=== PATIENT | male | born 1945 | race Caucasian/White ===

== ENCOUNTER 2021-01-16 17:57 | Inpatient (IN) | payer BC ==
--- NOTE | 2021-01-16 18:01 | ERPHSYRPT ---
- History of Present Illness Time Seen by Provider: 01/16/21 18:01 Source: patient Exam Limitations: no limitations Physician History: This is a 75-year-old patient of Dr. Howe who was sent over from urgent care because he was experiencing some shortness of breath and took a pulse oximeter at home and it was 86 to 88%. He also notes that his heart rate was rapid. He did not recall what it was. An EKG was performed in urgent care which showed that he was in atrial fibrillation. Patient is on 3 different medications to lower his blood pressure. Recently, he was restarted on clonidine that he was off of for approximately 2 weeks. This was at the most recent addition to his drug regimen. He also has a history of gastroesophageal reflux disease. Patient denies chest pain. Patient denies abdominal pain. He does not have a history of atrial fibrillation and is not on any anticoagulation therapy. Timing/Duration: today Severity: moderate Associated Symptoms: shortness of breath, No chest pain Allergies/Adverse Reactions: No Known Drug Allergies Allergy (Verified 01/16/21 18:17) Home Medications: Amlodipine Besylate 10 mg [Norvasc 10 MG] 10 mg PO DAILY 08/09/15 [History] Phenylephrine HCl [Nasal Jellico] 30 ml NS DAILY PRN PRN 08/09/15 [History] Ramipril [Altace] 10 mg PO DAILY 08/09/15 [History] Omeprazole 20 mg PO DAILY 01/16/21 [History] Simvastatin 20Mg [Zocor 20Mg] 20 mg PO DAILY 01/16/21 [History] Timolol Maleate 0.5% Eye [Timoptic 0.5% 5 ml Ophthalmic] 5 ml OP BID 01/16/21 [History] cloNIDine HCL [Clonidine HCl] 0.2 mg PO DAILY 01/16/21 [History] Travel Risk - International Travel Have you traveled outside of the country in past 3 weeks: No - Coronavirus Screening Are you exhibiting any of the following symptoms?: No Close contact with a COVID-19 positive Pt in past 14-21 Days: No - Review of Systems Constitutional: No Symptoms Eyes: No Symptoms Ears, Nose, & Throat: No Symptoms Respiratory: Dyspnea Cardiac: Palpitations, No Chest Pain Abdominal/Gastrointestinal: No Symptoms Genitourinary Symptoms: No Symptoms Musculoskeletal: No Symptoms Skin: No Symptoms Neurological: No Symptoms Psychological: No Symptoms Endocrine: No Symptoms Hematologic/Lymphatic: No Symptoms Immunological/Allergic: No Symptoms All Other Systems: Reviewed and Negative - Past Medical History Pertinent Past Medical History: Yes Neurological History: No Pertinent History ENT History: No Pertinent History Cardiac History: High Cholesterol, Hypertension Respiratory History: No Pertinent History Endocrine Medical History: No Pertinent History Musculoskeletal History: No Pertinent History GI Medical History: GERD History: No Pertinent History Psycho-Social History: No Pertinent History Male Reproductive Disorders: No Pertinent History Other Medical History: 20-30 years ago he was wrestling with his son, he noted pain in the R shoulder and pain in the area where he hurts now. - Past Surgical History Past Surgical History: Yes Neuro Surgical History: No Pertinent History Cardiac: No Pertinent History Respiratory: No Pertinent History Gastrointestinal: No Pertinent History Genitourinary: No Pertinent History Musculoskeletal: No Pertinent History Male Surgical History: No Pertinent History Other Surgical History: EGD. Colonoscopy - Social History Smoking Status: Never smoker Exposure to second hand smoke: No Drug Use: none - Nursing Vital Signs Nursing Vital Signs: Initial Vital Signs Temperature 97.9 F 01/16/21 18:10 Pulse Rate 121 H 01/16/21 18:10 Respiratory Rate 24 01/16/21 18:10 Blood Pressure 170/118 01/16/21 18:10 O2 Sat by Pulse Oximetry 92 L 01/16/21 18:10 Pain Scale Pain Intensity 0 - Physical Exam General Appearance: no apparent distress, alert, anxiety Eye Exam: PERRL/EOMI, eyes nml inspection Ears, Nose, Throat Exam: normal ENT inspection, moist mucous membranes Neck Exam: normal inspection, non-tender, supple, full range of motion Respiratory Exam: normal breath sounds, lungs clear, No chest tenderness, No respiratory distress Cardiovascular Exam: irregular Gastrointestinal/Abdomen Exam: soft, normal bowel sounds, No tenderness Rectal Exam: not done Back Exam: normal inspection, normal range of motion, No CVA tenderness, No vertebral tenderness Extremity Exam: normal inspection, normal range of motion, pelvis stable Neurologic Exam: alert, oriented x 3, cooperative, telephone engineer II-XII nml as tested, normal mood/affect, nml cerebellar function, nml station & gait, sensation nml Skin Exam: normal color, warm, dry Lymphatic Exam: No adenopathy SpO2 Interpretation: normal O2 Delivery: Room Air - Course Nursing assessment & vital signs reviewed: Yes EKG Interpreted by Me: RATE (135), A-fib, NORMAL AXIS, NORMAL INTERVALS, NORMAL QRS, NORMAL ST-T, Non-specific ST Changes, Other (No comparison EKG. No acute ischemic changes on today's EKG) Ordered Tests: Active Orders 24 hr Category Date Time Status Dehydrogenation Converter Operator STAT Care 01/16/21 18:31 Active EKG-ER Only STAT Care 01/16/21 18:30 Active IV Insertion STAT Care 01/16/21 18:30 Active Pulse Oximetry (ED) STAT Care 01/16/21 18:30 Active CHEST 1 VIEW (PORTABLE) Stat Exams 01/16/21 18:31 Taken CHEST WITH CONTRAST [CT] Stat Exams 01/16/21 20:46 Taken CBC W DIFF Stat Lab 01/16/21 18:42 Completed CMP Stat Lab 01/16/21 18:42 Completed D-DIMER QUANTITATIVE Stat Lab 01/16/21 18:42 Completed MAGNESIUM Stat Lab 01/16/21 18:42 Completed NT PRO BNP Stat Lab 01/16/21 18:42 Completed PROTIME WITH INR Stat Lab 01/16/21 18:42 Completed TROPONIN Q3H Lab 01/16/21 18:42 Completed TROPONIN Q3H Lab 01/16/21 21:45 Ordered TROPONIN Q3H Lab 01/17/21 00:45 Ordered TROPONIN Q3H Lab 01/17/21 03:45 Ordered TROPONIN Q3H Lab 01/17/21 06:45 Ordered Transfer Order Routine Transfer 01/16/21 Ordered Medication Summary Generic Name Dose Route Start Last Admin Trade Name Freq PRN Reason Stop Dose Admin Diltiazem HCl 100 mls @ 5 mls/hr 01/16/21 21:10 Cardizem Drip 100 Mg/100 Ml D5w IV 02/15/21 21:09 .Q20H PRN HEART RATE/ A-FIB Protocol 5 MG/HR Discontinued Medications Generic Name Dose Route Start Last Admin Trade Name Freq PRN Reason Stop Dose Admin Diltiazem HCl 20 mg 01/16/21 18:32 01/16/21 18:42 Diltiazem Hcl Iv 5 Mg/Ml Vial IV 01/16/21 18:33 20 mg STAT ONE Administration Diltiazem HCl Confirm 01/16/21 18:33 Diltiazem Hcl Iv 5 Mg/Ml Vial Administered 01/16/21 18:34 Dose 50 mg IV .STK-MED ONE Enoxaparin Sodium 80 mg 01/16/21 21:09 01/16/21 21:21 Enoxaparin Sodium 80 Mg/0.8 Ml Syringe SQ 01/16/21 21:10 80 mg STAT ONE Administration Enoxaparin Sodium Confirm 01/16/21 21:19 Enoxaparin Sodium 80 Mg/0.8 Ml Syringe Administered 01/16/21 21:20 Dose 80 mg SQ .STK-MED ONE Sodium Chloride 500 mls @ 500 mls/hr 01/16/21 19:52 01/16/21 21:21 Sodium Chloride 0.9% 500 Ml IV 01/16/21 20:51 500 mls/hr .Q1H ONE Administration Sodium Chloride Confirm 01/16/21 21:19 Sodium Chloride 0.9% 500 Ml Administered 01/16/21 21:20 Dose 500 mls @ ud IV .STK-MED ONE Lorazepam 1 mg 01/16/21 20:19 Lorazepam 2 Mg/1 Ml 2 Mg Vial IV 01/16/21 20:20 STAT ONE Lab/Rad Data: Laboratory Result Diagrams 01/16/21 18:42 01/16/21 18:42 Laboratory Results 01/16/21 01/16/21 01/16/21 Range/Units 18:42 18:42 18:42 WBC (4.0-10.5) K/mm3 RBC (4.1-5.6) M/mm3 Hgb (12.5-18.0) gm/dl Hct (42-50) % MCV (78-100) fl MCH (26-32) pg MCHC (32-36) g/dl RDW (11.5-14.0) % Plt Count (150-450) K/mm3 MPV (7.5-11.0) fl Gran % (36.0-66.0) % Eos # (Auto) (0-0.5) Absolute Lymphs (auto) (1.0-4.6) Absolute Monos (auto) (0.0-1.3) Lymphocytes % (24.0-44.0) % Monocytes % (0.0-12.0) % Eosinophils % (0.00-5.0) % Basophils % (0.0-0.4) % Absolute Granulocytes (1.4-6.9) Basophils # (0-0.4) PT 11.7 (9.4-12.5) SECONDS INR 0.99 (0.8-3.0) D-Dimer 6057 H* (215-500) ng/mL Sodium 138 (137-145) mmol/L Potassium 3.9 (3.5-5.1) mmol/L Chloride 101 (98-107) mmol/L Carbon Dioxide 28 (22-30) mmol/L Anion Gap 13.3 (5-15) MEQ/L BUN 22 H (9-20) mg/dL Creatinine 0.94 (0.66-1.25) mg/dL Estimated GFR > 60.0 ML/MIN Glucose 125 H (74-106) mg/dL Calcium 8.8 (8.4-10.2) mg/dL Magnesium 1.8 (1.6-2.3) mg/dL Total Bilirubin 0.80 (0.2-1.3) mg/dL AST 35 (17-59) U/L ALT 18 (0-50) U/L Alkaline Phosphatase 98 (38-126) U/L Troponin I 0.016 (0.000-0.034) ng/mL NT-Pro-B Natriuret Pep 742 (0-900) pg/mL Serum Total Protein 7.3 (6.3-8.2) g/dL Albumin 4.1 (3.5-5.0) g/dL 01/16/21 Range/Units 18:42 WBC 8.8 (4.0-10.5) K/mm3 RBC 5.19 (4.1-5.6) M/mm3 Hgb 15.0 (12.5-18.0) gm/dl Hct 46.3 (42-50) % MCV 89.2 (78-100) fl MCH 28.9 (26-32) pg MCHC 32.4 (32-36) g/dl RDW 13.8 (11.5-14.0) % Plt Count 207 (150-450) K/mm3 MPV 9.4 (7.5-11.0) fl Gran % 73.1 H (36.0-66.0) % Eos # (Auto) 0.13 (0-0.5) Absolute Lymphs (auto) 1.43 (1.0-4.6) Absolute Monos (auto) 0.79 (0.0-1.3) Lymphocytes % 16.3 L (24.0-44.0) % Monocytes % 9.0 (0.0-12.0) % Eosinophils % 1.5 (0.00-5.0) % Basophils % 0.1 (0.0-0.4) % Absolute Granulocytes 6.39 (1.4-6.9) Basophils # 0.01 (0-0.4) PT (9.4-12.5) SECONDS INR (0.8-3.0) D-Dimer (215-500) ng/mL Sodium (137-145) mmol/L Potassium (3.5-5.1) mmol/L Chloride (98-107) mmol/L Carbon Dioxide (22-30) mmol/L Anion Gap (5-15) MEQ/L BUN (9-20) mg/dL Creatinine (0.66-1.25) mg/dL Estimated GFR ML/MIN Glucose (74-106) mg/dL Calcium (8.4-10.2) mg/dL Magnesium (1.6-2.3) mg/dL Total Bilirubin (0.2-1.3) mg/dL AST (17-59) U/L ALT (0-50) U/L Alkaline Phosphatase (38-126) U/L Troponin I (0.000-0.034) ng/mL NT-Pro-B Natriuret Pep (0-900) pg/mL Serum Total Protein (6.3-8.2) g/dL Albumin (3.5-5.0) g/dL - Progress Progress: improved, re-examined Progress Note: 01/16/21 21:23 The CTA of the chest shows significant pulmonary emboli in both main pulmonary arteries extending into all lobar branches. There are 2 left upper lobe indeterminate noncalcified nodules. There is cardiomegaly without effusions. Chest x-ray reveals no acute cardiopulmonary process. 01/16/21 21:24 Medical decision making: This patient has bilateral pulmonary emboli. In addition, there is new onset atrial fibrillation with RVR. The patient's heart rate improved significantly following Cardizem intravenous bolus. I gave the patient Lovenox 80 mg subcutaneously. I spoke with the patient's primary care doctor, Dr. Howe reviewed all the patient's lab work and results of the CAT scan of the chest. I also reviewed the patient's history and reviewed the patient's physical findings with him. He agrees that the patient needs to be in the hospital in the intensive care unit. We will place the patient in the intensive care unit with every 12 hours Lovenox, Cardizem drip, oxygen supplementation. We will repeat labs in the morning. Patient is agreeable to this plan. Discussed with .: Bella Counseled pt/family regarding: lab results, diagnosis, rad results - Departure Departure Disposition: In-patient Admission Clinical Impression: Pulmonary emboli, Atrial fibrillation with RVR Condition: Fair Critical Care Time: Yes Critical Care Time(excluding separately billable procedures): Critical 30-74 mins (50 minutes) Referrals: RACHLE HOWE [Primary Care Provider] - Follow up/PCP as directed
[2021-01-16] MEDS ORDERED: Cardizem IV 50 MG/10 ML IV ONE ×2 (18:32→18:33)
[2021-01-16 19:03] LABS: Absolute Neutrophil Ct (ANC) 6.39 (1.4-6.9); BASOPHIL % 0.1 % (0.0-0.4); Basophil (Absolute #) 0.01 (0-0.4); Eosinophil % 1.5 % (0.00-5.0); Eosinophil (Absolute #) 0.13 (0-0.5); Hematocrit 46.3 % (42-50); Lymphocyte (Absolute #) 1.43 (1.0-4.6); Lymphocytes % 16.3 % (24.0-44.0); Mean Cell Volume 89.2 fl (78-100); Mean Corpuscular Hemoglobin 28.9 pg (26-32); Mean Corpuscular Hgb Concent. 32.4 g/dl (32-36); Mean Platelet Volume 9.4 fl (7.5-11.0); Monocyte (Absolute #) 0.79 (0.0-1.3); Neutrophil % 73.1 % (36.0-66.0); Platelet Count 207 K/mm3 (150-450); Red Blood Count 5.19 M/mm3 (4.1-5.6); Red Cell Distribution Width 13.8 % (11.5-14.0); White Blood Count 8.8 K/mm3 (4.0-10.5)
[2021-01-16 19:13] LABS: INR 0.99 (0.8-3.0); PROTIME 11.7 SECONDS (9.4-12.5)
[2021-01-16 19:28] LABS: ALBUMIN 4.1 g/dL (3.5-5.0); ALKALINE PHOSPHATASE 98 U/L (38-126); ANION GAP 13.3 MEQ/L (5-15); BLOOD UREA NITROGEN 22 mg/dL (9-20); CHLORIDE 101 mmol/L (98-107); Calcium 8.8 mg/dL (8.4-10.2); Carbon Dioxide 28 mmol/L (22-30); Creatinine 1 0.94 mg/dL (0.66-1.25); EST GLOMERULAR FILTRATION RATE > 60.0 ML/MIN; Glucose 125 mg/dL (74-106); MAGNESIUM 1.8 mg/dL (1.6-2.3); NT PRO BNP 742 pg/mL (0-900); Potassium 3.9 mmol/L (3.5-5.1); SGOT/AST 35 U/L (17-59); SGPT/ALT 18 U/L (0-50); SODIUM 138 mmol/L (137-145); Total Protein 7.3 g/dL (6.3-8.2)
[2021-01-16] MEDS ORDERED: Sodium Chloride 0.9% 500 ML 500 ML IV ONE ×2 (19:52→21:19)
[2021-01-16] MEDS ORDERED: Ativan 2 MG/1 ML VIAL IV ONE (20:19)
[2021-01-16] MEDS ORDERED: ENOXAPARIN SODIUM SQ ONE ×2 (21:09→21:19)
[2021-01-16] MEDS ORDERED: CARDIZEM DRIP 100 MG/100 ML D5W 100 ML IV PRN (21:10)
[2021-01-16] MEDS ORDERED: CARDIZEM DRIP 100 MG/100 ML D5W 100 ML IV ONE (21:51)
[2021-01-16 22:32] LABS: INFLUENZA A NEGATIVE (NEGATIVE); INFLUENZA B NEGATIVE (NEGATIVE); RESPIRATORY SYNCTIAL VIRUS NEGATIVE (Negative); SARS-CoV-2 Xpert Express NEGATIVE (NEGATIVE)
[2021-01-17] MEDS ORDERED: Zofran 4 MG/2 ML VIAL IV PRN (00:53)
[2021-01-17] MEDS ORDERED: Sodium Chloride 0.9% 1000 ML 1,000 ML IV SCH (00:53)
[2021-01-17] MEDS ORDERED: TYLENOL 325 MG PO PRN (00:53)
[2021-01-17] MEDS ORDERED: Ativan 2 MG/1 ML VIAL IV PRN (00:53)
[2021-01-17] MEDS ORDERED: ENOXAPARIN SODIUM SQ SCH ×2 (00:53→12:00)
[2021-01-17] MEDS ORDERED: CARDIZEM DRIP 100 MG/100 ML D5W 100 ML IV PRN (00:53)
[2021-01-17 05:07] LABS: Absolute Neutrophil Ct (ANC) 6.84 (1.4-6.9); BASOPHIL % 0.1 % (0.0-0.4); Basophil (Absolute #) 0.01 (0-0.4); Eosinophil % 0.8 % (0.00-5.0); Eosinophil (Absolute #) 0.08 (0-0.5); Hematocrit 43.6 % (42-50); Hemoglobin 13.8 gm/dl (12.5-18.0); Lymphocyte (Absolute #) 1.73 (1.0-4.6); Lymphocytes % 18.1 % (24.0-44.0); Mean Cell Volume 89.9 fl (78-100); Mean Corpuscular Hemoglobin 28.5 pg (26-32); Mean Corpuscular Hgb Concent. 31.7 g/dl (32-36); Mean Platelet Volume 9.9 fl (7.5-11.0); Monocyte (Absolute #) 0.88 (0.0-1.3); Monocytes % 9.2 % (0.0-12.0); Neutrophil % 71.8 % (36.0-66.0); Platelet Count 213 K/mm3 (150-450); Red Blood Count 4.85 M/mm3 (4.1-5.6); Red Cell Distribution Width 13.9 % (11.5-14.0); White Blood Count 9.5 K/mm3 (4.0-10.5)
[2021-01-17 05:22] LABS: ALBUMIN 3.7 g/dL (3.5-5.0); ALKALINE PHOSPHATASE 99 U/L (38-126); ANION GAP 9.7 MEQ/L (5-15); BLOOD UREA NITROGEN 15 mg/dL (9-20); CHLORIDE 102 mmol/L (98-107); Calcium 8.5 mg/dL (8.4-10.2); Carbon Dioxide 29 mmol/L (22-30); Creatinine 1 0.72 mg/dL (0.66-1.25); EST GLOMERULAR FILTRATION RATE > 60.0 ML/MIN; Glucose 115 mg/dL (74-106); Potassium 3.3 mmol/L (3.5-5.1); SGOT/AST 26 U/L (17-59); SGPT/ALT 16 U/L (0-50); SODIUM 137 mmol/L (137-145); Total Protein 6.5 g/dL (6.3-8.2)
[2021-01-17] MEDS ORDERED: Ambien 10 MG PO PRN (07:40)
--- NOTE | 2021-01-17 08:40 | XRAY ---
Indication: Short of breath. Elevated d-dimer. Multiple contiguous axial images obtained through the chest using 80 cc Isovue 370 contrast and PE protocol. Comparison: None There is good opacification of the pulmonary arteries. Extensive nonoccluding pulmonary emboli seen in the distal left and right main pulmonary arteries extending into all lobar branches. Heart is enlarged without pericardial effusion. Aorta is normal in course and caliber. Small left hilar calcified nodes. No pathologic mediastinal/hilar lymphadenopathy. Small hiatal hernia. Lungs demonstrate a few left upper lobe calcified granulomas, largest 9 mm. Left upper lobe also demonstrates 2 irregular noncalcified indeterminant nodules [id number], larger measuring 9 x 13 mm. No infiltrate or effusion. Bony thorax intact with mild osteopenia and mild degenerative changes throughout the spine. Limited upper abdomen demonstrates 2 incompletely visualized right renal cysts, largest 3.3 cm. Incidental tiny splenic calcified granulomas. Impression: 1. Extensive nonoccluding bilateral pulmonary emboli as detailed. 2. Two left upper lobe indeterminate noncalcified nodules. Findings possibly granulomatous as there is evidence for old granulomatous disease elsewhere. Outside comparison study is recommended if available. If not, follow-up per Fleischner guidelines recommend. 3. Incidental small hiatal hernia, right renal cysts, and chronic bony findings.
--- NOTE | 2021-01-17 08:42 | XRAY ---
Indication: Short of breath. Comparison: July 29, 2017. Portable chest remains clear again with incidental left hilar and left upper lobe calcified granulomas. Heart now borderline enlarged. Bony thorax intact again with osteopenia and degenerative changes. No acute cardiopulmonary abnormalities.
--- NOTE | 2021-01-17 09:04 | HP ---
CHIEF COMPLAINT: Shortness of breath and low oxygen saturations. HISTORY OF PRESENT ILLNESS: The patient is a 75-year-old white male patient who reportedly felt okay until after work today he got out of his car and felt like the wind was just being sucked out of him. He checked his O2 saturations and found it to be 87%. The patient presented himself to the emergency room where he was found to be in atrial fibrillation with rapid ventricular response. Further evaluation also proved him to have a very high D-dimer and had apparently developed a pulmonary emboli throughout both main stem and tributary bronchial branches. PAST MEDICAL/SURGICAL HISTORY: Significant for hypertension, hyperlipidemia. He does not see cardiology and has home O2. He did previously have issues with hyperlipidemia and gastroesophageal reflux disease. HOME MEDICATIONS: Includes amlodipine 10 mg a day, clonidine 0.2 mg at night, omeprazole 20 mg a day. Phenylephrine nasal spray PRN, Altace 10 mg a day, Simvastatin 20 mg a day, timolol eye drops 0.5, Ambien 10 mg at night for sleep. ALLERGIES: NKDA. PHYSICAL EXAMINATION: Revealed a well-nourished, well-developed 75-year-old white male in no obvious distress currently. He is in the ICU with oxygen on and received IV fluids and Cardizem drip. VITAL SIGNS: The patient's vital signs on admission showed his temperature to be 97.9F, pulse 121, respiratory rate 24 and blood pressure 170/118. His O2 saturation on supplemental oxygen was 93%. HEENT: Normocephalic, atraumatic. Pupils equal round reactive to light. Extraocular movements intact. Oropharynx is pink and moist. He is wearing oxygen by nasal cannula. NECK: Supple without lymphadenopathy, thyromegaly or JVD. CHEST: Essentially clear to auscultation. HEART: The heart does reveal irregular heart rhythm rate currently is about 100. ABDOMEN: Soft. No palpable masses. EXTREMITIES: Without cyanosis, clubbing or edema. NEUROLOGIC: The patient is alert and oriented x3 with no focal deficits noted. LAB DATA AND TESTS: The patient's laboratory studies shows his troponins to be slightly elevated at 0.063 most recently. His sugar was 115. Kidney functions and electrolytes were essentially normal with a slightly low potassium at 3.3. Liver enzymes were normal. His white count is 9,500, hemoglobin 13.8, PLT count 213,000. His COVID test was negative. D-dimer was 6057. INR normal at 0.99. His initial troponin was 0.016. Studies again reveal on the CT scan showed pulmonary emboli in both main pulmonary bronchial arteries extending all the way to the lobar branches and two left upper lobe indeterminate noncalcified nodules which will require further evaluation. ASSESSMENT: A patient with atrial fibrillation and now pulmonary emboli with low oxygen saturations. He has been admitted to the ICU on a Cardizem drip. He is on supplemental oxygen. Presently we will obtain venous Dopplers of the lower extremities, will get an echocardiogram of the heart and will get tele-cardiology consult. We should be able to change him over from Cardizem drip to Cardiozem 60 mg p.o. every 8 hours. He will be on Eliquis at 10 mg b.i.d. for the pulmonary emboli as well. He will receive Lovenox for his initial treatment.
[2021-01-17] MEDS ORDERED: NON-FORMULARY ITEM (Ramipril [Altace] 10 MG Capsule) PO SCH (10:00)
[2021-01-17] MEDS ORDERED: TIMOPTIC 0.5% 5 ML OPHTHALMIC OP SCH ×2 (10:00)
[2021-01-17] MEDS ORDERED: NORVASC 5 MG PO SCH (10:00)
[2021-01-17] MEDS ORDERED: ELIQUIS 2.5 MG TABLET PO SCH (10:00)
[2021-01-17] MEDS ORDERED: Protonix 40MG Tablet PO SCH (10:00)
[2021-01-17] MEDS ORDERED: NON-FORMULARY ITEM (Amlodipine Besylate 10 Mg [Norvasc 10 Mg] 10 MG Tablet) PO SCH (10:00)
[2021-01-17] MEDS: Cardizem 30 MG PO SCH ×2 (10:10→14:07)
--- NOTE | 2021-01-17 10:51 | XRAY ---
Indication: Pulmonary emboli. Two-dimensional sonogram and color Doppler imaging of the major venous vessels of the left and right leg performed. Comparison: None Right popliteal vein demonstrates nonoccluding thrombi. No other thrombus seen in the examined deep venous vessels of the left and right leg including greater saphenous vein. Patent veins demonstrate normal compressibility. Venous waveforms are normal. Impression: Nonoccluding right popliteal vein DVT. Left leg negative for DVT.
[2021-01-17] MEDS ORDERED: Lopressor 50 MG PO SCH (17:00)
[2021-01-17 20:11] VITALS: BP 118/65; PULSE 81; O2SAT 96
[2021-01-17] MEDS ORDERED: ZOCOR 20MG PO SCH (22:00)
[2021-01-17] MEDS ORDERED: Catapres 0.1 MG PO SCH (22:00)
[2021-01-17] MEDS ORDERED: NON-FORMULARY ITEM (Omeprazole [Omeprazole] 20 MG Tablet.Dr) PO SCH (22:00)
[2021-01-17] MEDS ORDERED: CLONIDINE HCL 0.2 MG PO SCH (22:00)
== END 2021-01-17 20:05 | disposition home or self-care (01) | DRG 308 ==
LOC: ED 17:57 → ICU 01-17 00:40
PROVIDERS: ADMIT Family Medicine; ATTEND Family Medicine
DX: I48.91 Unspecified atrial fibrillation (principal); I26.99 Other pulmonary embolism without acute cor pulmonale; R00.8 Other abnormalities of heart beat; K21.9 Gastro-esophageal reflux disease without esophagitis; I10 Essential (primary) hypertension; E78.5 Hyperlipidemia, unspecified; Z79.899 Other long term (current) drug therapy; Z20.828 Contact with and (suspected) exposure to other viral communicable diseases
CPT/HCPCS: 0241U; 36000; 36415; 71045; 71260; 80053; 83735; 83880; 84484; 85025; 85379; 85610; 93005; 93041; 93306; 93970; 94760; 96372; 96374; 99285; 99291; J1650; Q3014; A9270-GY

== ENCOUNTER 2021-01-25 18:26 | Emergency (ER) | payer BC ==
[2021-01-25 19:08] LABS: Absolute Neutrophil Ct (ANC) 4.88 (1.4-6.9); BASOPHIL % 0.3 % (0.0-0.4); Basophil (Absolute #) 0.02 (0-0.4); Eosinophil % 2.2 % (0.00-5.0); Eosinophil (Absolute #) 0.16 (0-0.5); Hematocrit 46.4 % (42-50); Hemoglobin 14.7 gm/dl (12.5-18.0); Lymphocytes % 21.7 % (24.0-44.0); Mean Cell Volume 90.1 fl (78-100); Mean Corpuscular Hemoglobin 28.5 pg (26-32); Mean Corpuscular Hgb Concent. 31.7 g/dl (32-36); Monocytes % 9.5 % (0.0-12.0); Neutrophil % 66.3 % (36.0-66.0); Platelet Count 301 K/mm3 (150-450); Red Blood Count 5.15 M/mm3 (4.1-5.6); White Blood Count 7.4 K/mm3 (4.0-10.5)
[2021-01-25 19:25] LABS: ALBUMIN 4.1 g/dL (3.5-5.0); ALKALINE PHOSPHATASE 167 U/L (38-126); ANION GAP 12.2 MEQ/L (5-15); BLOOD UREA NITROGEN 13 mg/dL (9-20); CHLORIDE 99 mmol/L (98-107); Calcium 8.9 mg/dL (8.4-10.2); Carbon Dioxide 31 mmol/L (22-30); Creatinine 1 0.71 mg/dL (0.66-1.25); EST GLOMERULAR FILTRATION RATE > 60.0 ML/MIN; Glucose 117 mg/dL (74-106); Potassium 3.6 mmol/L (3.5-5.1); SGOT/AST 88 U/L (17-59); SGPT/ALT 77 U/L (0-50); SODIUM 139 mmol/L (137-145); Total Protein 7.2 g/dL (6.3-8.2)
--- NOTE | 2021-01-25 19:49 | ERPHSYRPT ---
- History of Present Illness Time Seen by Provider: 01/25/21 18:35 Source: patient Exam Limitations: no limitations Patient Subjective Stated Complaint: PT HERE FOR HTN, WAS SEEN BY DR HERNANDEZ AND B/P MARIANELA ELEVATED HE ALSO STATES HE HAD AN ECHO THAT WAS NOT NORMAL TODAY Triage Nursing Assessment: PT ALERT, WALKED IN, RESP EASY, PT HAS 2 PE FOUND AND IS NOW ON BLOOD THINNERS . FACE MASK IN PLACE, EDEMA TO LOWER LEGS THAT HE STATES IS NORMAL Physician History: Patient is a 75-year-old male presents to our ED for evaluation of high blood pressure. Patient visited with his primary care physician today. Blood pressure was found to be elevated. Patient states that his blood pressure medication was adjusted. Patient went to work out. He rechecks his blood pressure found this to be elevated even more so than what it was at the doctor's office. Patient became concerned and came to our ED. Patient otherwise feels well. No associated dizziness. No headache. No blurred vision. No numbness tingling or weakness. No chest pain or shortness of breath. No nausea vomiting or diaphoresis. Patient states he just came in to get checked out. He voices no other complaints or concerns at this time. Patient otherwise asymptomatic Timing/Duration: today Severity: moderate Modifying Factors: Improves With: nothing Associated Symptoms: denies symptoms Allergies/Adverse Reactions: No Known Drug Allergies Allergy (Verified 01/17/21 01:05) Home Medications: Amlodipine Besylate 10 mg [Norvasc 10 MG] 10 mg PO DAILY 08/09/15 [History] Phenylephrine HCl [Nasal Siler] 30 ml NS BID PRN PRN 08/09/15 [History] Ramipril [Altace] 10 mg PO DAILY 08/09/15 [History] Omeprazole 20 mg PO QHS 01/16/21 [History] Simvastatin 20Mg [Zocor 20Mg] 20 mg PO QHS 01/16/21 [History] Timolol Maleate 0.5% Eye [Timoptic 0.5% 5 ml Ophthalmic] 5 ml OP BID 01/16/21 [History] cloNIDine HCL [Clonidine HCl] 0.2 mg PO QHS 01/16/21 [History] Zolpidem Tartrate 10 mg [Ambien 10 MG] 10 mg PO HS PRN PRN 01/17/21 [History] Hx Influenza Vaccination/Date Given: No Hx Pneumococcal Vaccination/Date Given: No Immunizations Up to Date: Yes Travel Risk - International Travel Have you traveled outside of the country in past 3 weeks: No - Coronavirus Screening Are you exhibiting any of the following symptoms?: No Close contact with a COVID-19 positive Pt in past 14-21 Days: No - Vaccine Status Have you recieved a Covid-19 vaccination: Yes 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[employer]: [employer] - Vaccination Dates Dates if Unknown: 07/18/2020 - Review of Systems Constitutional: No Symptoms, No Fever, No Chills Eyes: No Symptoms Ears, Nose, & Throat: No Symptoms Respiratory: No Symptoms, No Cough, No Dyspnea Cardiac: No Symptoms, No Chest Pain, No Edema, No Syncope Abdominal/Gastrointestinal: No Symptoms, No Abdominal Pain, No Nausea, No Vomiting, No Diarrhea Genitourinary Symptoms: No Symptoms, No Dysuria Musculoskeletal: No Symptoms, No Back Pain, No Neck Pain Skin: No Symptoms, No Rash Neurological: No Symptoms, No Dizziness, No Focal Weakness, No Sensory Changes Psychological: No Symptoms Endocrine: No Symptoms Hematologic/Lymphatic: No Symptoms Immunological/Allergic: No Symptoms All Other Systems: Reviewed and Negative - Past Medical History Pertinent Past Medical History: Yes Neurological History: No Pertinent History ENT History: Glaucoma Cardiac History: High Cholesterol, Hypertension Respiratory History: No Pertinent History, Pulmonary Embolism Endocrine Medical History: No Pertinent History Musculoskeletal History: No Pertinent History GI Medical History: GERD History: No Pertinent History Psycho-Social History: No Pertinent History Male Reproductive Disorders: No Pertinent History Other Medical History: Reaction to Marlon and Marlon COVID vaccine - severe headaches, depression, anxiety, HTN. - Past Surgical History Past Surgical History: Yes Neuro Surgical History: No Pertinent History Cardiac: No Pertinent History Respiratory: No Pertinent History Gastrointestinal: No Pertinent History Genitourinary: No Pertinent History Musculoskeletal: No Pertinent History Male Surgical History: No Pertinent History Other Surgical History: EGD. Colonoscopy - Social History Smoking Status: Never smoker Exposure to second hand smoke: No Drug Use: none Patient Lives Alone: No - Nursing Vital Signs Nursing Vital Signs: Initial Vital Signs O2 Sat by Pulse Oximetry 97 01/25/21 18:27 Pain Scale Pain Intensity 0 - Physical Exam General Appearance: no apparent distress, alert Eye Exam: PERRL/EOMI, eyes nml inspection Ears, Nose, Throat Exam: normal ENT inspection, TMs normal, pharynx normal, moist mucous membranes Neck Exam: normal inspection, non-tender, supple, full range of motion Respiratory Exam: normal breath sounds, lungs clear, airway intact, No respiratory distress Cardiovascular Exam: regular rate/rhythm, normal heart sounds, normal peripheral pulses Gastrointestinal/Abdomen Exam: soft, normal bowel sounds, No tenderness, No mass Back Exam: normal inspection, normal range of motion, No CVA tenderness, No vertebral tenderness Extremity Exam: normal inspection, normal range of motion, pelvis stable Neurologic Exam: alert, oriented x 3, cooperative, normal mood/affect, nml cerebellar function, nml station & gait, sensation nml, No motor deficits Skin Exam: normal color, warm, dry, No rash Lymphatic Exam: No adenopathy SpO2 Interpretation: normal SpO2: 94 O2 Delivery: Room Air - Course Nursing assessment & vital signs reviewed: Yes - Radiology Exams Chest X-ray Interpretation: Interpreted by me (Lungs are clear with left lung granulomas. Borderline cardiomegaly. Osteopenia. No acute cardial pulmonary processes.) Ordered Tests: Active Orders 24 hr Category Date Time Status Dialysis Technician STAT Care 01/25/21 18:48 Active EKG-ER Only STAT Care 01/25/21 18:47 Active IV Insertion STAT Care 01/25/21 18:47 Active Pulse Oximetry (ED) STAT Care 01/25/21 18:47 Active CHEST 1 VIEW (PORTABLE) Stat Exams 01/25/21 18:48 Taken CBC W DIFF Stat Lab 01/25/21 18:47 Completed CMP Stat Lab 01/25/21 18:47 Completed TROPONIN Q3H Lab 01/25/21 19:00 Completed TROPONIN Q3H Lab 01/25/21 22:00 Completed TROPONIN Q3H Lab 01/26/21 01:00 Ordered TROPONIN Q3H Lab 01/26/21 04:00 Ordered TROPONIN Q3H Lab 01/26/21 07:00 Ordered Medication Summary Discontinued Medications Generic Name Dose Route Start Last Admin Trade Name Freq PRN Reason Stop Dose Admin Erythromycin 3.5 gm 01/25/21 19:50 01/25/21 20:13 Erythromycin Base 3.5 Gm Tube Eye Ointment OP 01/25/21 19:51 Not Given STAT ONE Lab/Rad Data: Laboratory Result Diagrams 01/25/21 18:47 01/25/21 18:47 Laboratory Results 01/25/21 01/25/21 01/25/21 Range/Units 22:00 19:00 18:47 WBC (4.0-10.5) K/mm3 RBC (4.1-5.6) M/mm3 Hgb (12.5-18.0) gm/dl Hct (42-50) % MCV (78-100) fl MCH (26-32) pg MCHC (32-36) g/dl RDW (11.5-14.0) % Plt Count (150-450) K/mm3 MPV (7.5-11.0) fl Gran % (36.0-66.0) % Eos # (Auto) (0-0.5) Absolute Lymphs (auto) (1.0-4.6) Absolute Monos (auto) (0.0-1.3) Lymphocytes % (24.0-44.0) % Monocytes % (0.0-12.0) % Eosinophils % (0.00-5.0) % Basophils % (0.0-0.4) % Absolute Granulocytes (1.4-6.9) Basophils # (0-0.4) Sodium 139 (137-145) mmol/L Potassium 3.6 (3.5-5.1) mmol/L Chloride 99 (98-107) mmol/L Carbon Dioxide 31 H (22-30) mmol/L Anion Gap 12.2 (5-15) MEQ/L BUN 13 (9-20) mg/dL Creatinine 0.71 (0.66-1.25) mg/dL Estimated GFR > 60.0 ML/MIN Glucose 117 H (74-106) mg/dL Calcium 8.9 (8.4-10.2) mg/dL Total Bilirubin 0.60 (0.2-1.3) mg/dL AST 88 H (17-59) U/L ALT 77 H (0-50) U/L Alkaline Phosphatase 167 H (38-126) U/L Troponin I < 0.012 < 0.012 (0.000-0.034) ng/mL Serum Total Protein 7.2 (6.3-8.2) g/dL Albumin 4.1 (3.5-5.0) g/dL 01/25/21 Range/Units 18:47 WBC 7.4 (4.0-10.5) K/mm3 RBC 5.15 (4.1-5.6) M/mm3 Hgb 14.7 (12.5-18.0) gm/dl Hct 46.4 (42-50) % MCV 90.1 (78-100) fl MCH 28.5 (26-32) pg MCHC 31.7 L (32-36) g/dl RDW 14.0 (11.5-14.0) % Plt Count 301 (150-450) K/mm3 MPV 9.0 (7.5-11.0) fl Gran % 66.3 H (36.0-66.0) % Eos # (Auto) 0.16 (0-0.5) Absolute Lymphs (auto) 1.60 (1.0-4.6) Absolute Monos (auto) 0.70 (0.0-1.3) Lymphocytes % 21.7 L (24.0-44.0) % Monocytes % 9.5 (0.0-12.0) % Eosinophils % 2.2 (0.00-5.0) % Basophils % 0.3 (0.0-0.4) % Absolute Granulocytes 4.88 (1.4-6.9) Basophils # 0.02 (0-0.4) Sodium (137-145) mmol/L Potassium (3.5-5.1) mmol/L Chloride (98-107) mmol/L Carbon Dioxide (22-30) mmol/L Anion Gap (5-15) MEQ/L BUN (9-20) mg/dL Creatinine (0.66-1.25) mg/dL Estimated GFR ML/MIN Glucose (74-106) mg/dL Calcium (8.4-10.2) mg/dL Total Bilirubin (0.2-1.3) mg/dL AST (17-59) U/L ALT (0-50) U/L Alkaline Phosphatase (38-126) U/L Troponin I (0.000-0.034) ng/mL Serum Total Protein (6.3-8.2) g/dL Albumin (3.5-5.0) g/dL - Progress Progress: improved Progress Note: Patient reassessed. He remains well. Patient remains asymptomatic. Troponin negative x2. EKG was normal sinus rhythm. Patient has a history of atrial fibrillation. He is currently on Eliquis. Patient remains asymptomatic. Blood pressure slightly elevated currently 162/100. Patient understands that he will need to follow-up with his primary care doctor to reassess his blood pressure and the need for blood pressure modification. Patient states he is ready for discharge. He voices no other complaints concerns at this time. Chest x-ray unchanged from previous. 01/25/21 22:51 01/25/21 22:53 Counseled pt/family regarding: lab results, diagnosis, need for follow-up, rad results - Departure Departure Disposition: Home Clinical Impression: Transaminitis, Essential hypertension Condition: Stable Critical Care Time: No Referrals: RACHEL MURPHY [Primary Care Provider] - Follow up/PCP as directed Additional Instructions: Discharge/Care Plan AGNES DAVIES was seen on 01/25/21 in the Emergency Room. The patient was counseled regarding Diagnosis,Lab results, Imaging studies, need for follow up and when to return to the Emergency Room. Prescriptions given: Discharge Note I have spoken with the patient and/or caregivers. I have explained the patient's condition, diagnosis and treatment plan based on the information available to me at this time. I have answered the patient's and/or caregiver's questions and addressed any concerns. The patient and/or caregivers have as good understanding of the patient's diagnosis, condition and treatment plan as can be expected at this point. The vital signs have been stable. The patient's condition is stable and appropriate for discharge from the emergency department. The patient will pursue further outpatient evaluation with the primary care physician or other designated or consulting physician as outlined in the discharge instructions. The patient and/or caregivers are agreeable to this plan of care and follow-up instructions have been explained in detail. The patient and/or caregivers have received these instruction. The patient/and or caregivers are aware that any significant change in condition or worsening of symptoms should prompt an immediate return to this or the closest emergency department or call 911.
[2021-01-25] MEDS ORDERED: Erythromycin 3.5 GM OPHTH. OP ONE (19:50)
[2021-01-25 22:54] VITALS: BP 162/100; PULSE 76
[2021-01-25 22:57] VITALS: O2SAT 94
--- NOTE | 2021-01-26 11:39 | XRAY ---
Exam: AP upright portable chest film from 01/25/2021. Comparison: AP upright portable chest film from 01/16/2021. Indication: Chest pain, elevated blood pressure. Findings: The transverse heart size appears towards the upper limits of normal representing no significant change from 01/16/2021. There is a mild left ventricular contour of the heart representing no change. Mild tortuosity of the descending thoracic aorta is seen. Some granulomatous calcifications overlie the left hilum, AP window on the left, and peripheral left upper lung field representing no change. I see no air space infiltrates, vascular congestion, pneumothorax, or pleural fluid. No other significant lung findings are seen on the current study. There is mild bone demineralization and degenerative changes within the thoracic spine. Impression: 1. I see no evidence of focal pneumonia, heart failure, or other acute cardiopulmonary disease. 2. 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
[2021-01-27 09:10] LABS: HBsAg Screen Negative (Negative); Hep A Ab, IgM Negative (Negative); Hep B Core Ab, IgM Negative (Negative)
[2021-01-27 09:43] LABS: Hep C Virus Ab 0.2 s/co ratio (0.0-0.9)
== END 2021-01-25 22:58 | disposition home or self-care (01) ==
LOC: ED 18:26
DX: I10 Essential (primary) hypertension (principal); R74.01 Elevation of levels of liver transaminase levels; E78.5 Hyperlipidemia, unspecified; Z79.01 Long term (current) use of anticoagulants
CPT/HCPCS: 36000; 36415; 71045; 80053; 80074; 84484; 85025; 93005; 93041; 94760; 99284; A9270-GY

== ENCOUNTER 2022-05-27 08:47 | Day surgery (SDC) | payer BC ==
--- NOTE | 2022-05-27 08:32 | HP ---
DATE OF SURGERY: 05/27/2022 HISTORY OF PRESENT ILLNESS: A 76-year-old with history of walking pneumonia. After some antibiotics occasionally coughing and acting better now. He had some phlegm that would gather in his upper esophagus. He is in need of upper endoscopy to evaluate for esophagitis or other etiology. PAST MEDICAL HISTORY: He had some dysphagia, hard of hearing, hypertension and chronic obstructive pulmonary disease. He had some walking pneumonia. He has history of hiatal hernia in the past, hyperlipidemia, aortic stenosis. History of claustrophobia. History of glaucoma in the past. PAST SURGICAL HISTORY: He had seen an ENT in the past. Cardiac stents in the past. EGD, colonoscopy. MEDICATIONS: Zolpidem, timolol, sildenafil for pulmonary hypertension, simvastatin, potassium chloride, omeprazole, metoprolol, losartan, levothyroxine, lactobacillus, ketorolac, Imiquimod topical cream, hydrochlorothiazide, Flonase, Finacea topical foam, Eliquis, diltiazem, Plavix, Benzonatate, clonidine, albuterol sulfate, cetirizine. ALLERGIES: NKDA. FAMILY HISTORY: Negative for esophageal problems. SOCIAL HISTORY: No smoking or alcohol abuse. REVIEW OF SYSTEMS: Fourteen systems reviewed. No chest pain or palpitations. Other systems negative or noncontributory as above and per preadmission questionnaire. PHYSICAL EXAMINATION: BMI 25. Height 5'10". GENERAL: No acute distress. HEENT: Sclerae nonicteric. Oropharynx mucosa moist. NECK: No JVD. CHEST: Equal excursion, nonlabored breathing. CVS: Regular rate and rhythm. ABDOMEN: Soft. EXTREMITIES: No significant edema. NEURO: Alert, oriented, moving extremities symmetrically. PSYCH: Appropriate mood and affect. SKIN: Dry. IMPRESSION: Some reflux some dysphagia, history of coughing. He is in need of upper endoscopy to evaluate for esophagitis, esophageal narrowing and to evaluate for other etiology. I feel the patient is in need of EGD possible biopsy possible dilatation. General risk of bleeding or infection, risk of bowel injury or perforation, risk of missed or nondiagnosis or incomplete exam, possibly other procedures or referrals. If narrowed area noted and dilated might need that again down the road. General risk of anesthesia or sedation, risk of bowel prep but not limited to, consent obtained. Will proceed with outpatient EGD possible biopsy possible dilatation if indicated.
[2022-05-27] MEDS ORDERED: Lactated Ringers 1,000 ML IV ONE (09:39)
[2022-05-27] MEDS ORDERED: LOPRESSOR INJECTION IV PRN (09:50)
[2022-05-27] MEDS ORDERED: Lactated Ringers 1,000 ML IV SCH (10:00)
[2022-05-27] MEDS ORDERED: LOPRESSOR INJECTION IV ONE (10:29)
[2022-05-27 12:08] VITALS: BP 167/105; PULSE 65; O2SAT 94
[2022-05-27] MEDS ORDERED: DIPRIVAN 200 MG/20 ML IV ONE (12:12)
[2022-05-27] MEDS ORDERED: Xylocaine-Mpf 2% 5 Ml Vial ONE (12:12)
--- NOTE | 2022-05-27 13:51 | OP ---
SURGERY DATE/TIME: 05/27/2022 1113 PREOPERATIVE DIAGNOSIS: History of walking pneumonia, history of some dysphagia with dysphagia now resolved, history of some heartburn. He is in need for upper endoscopy to evaluate for esophagitis, gastritis or other etiology. POSTOPERATIVE DIAGNOSES: 1) Minimal gastritis. 2) Small gastric polyp. 3) Distal esophagitis with some salmon pink mucosa fingerlette extending approximately 2 cm up the esophagus from 40 cm to 38 cm (biopsy pending to evaluate for Gleason's esophagus). 4) No evidence of any visible esophageal narrowing that warranted any dilatation at this time. PROCEDURES: 1) EGD with cold biopsy of the small bowel for histology. 2) Cold biopsy of the antrum to evaluate for Helicobacter pylori. 3) Cold biopsy gastric body polyp, gastric fundus polyp, multiple cold biopsies distal esophagus to evaluate for esophagitis and to evaluate for possible Gleason's esophagus. SURGEON: Dr. Titi Murphy. DIRECTOR ADULT: Patricia Anderson, Medical Student III. ANESTHESIA: MAC. ESTIMATED BLOOD LOSS: Minimal. INDICATIONS: As noted above. Risks and benefits explained in detail and not limited to and consent obtained. DESCRIPTION OF PROCEDURE AND FINDINGS: The patient is taken to the endoscopy room. MAC anesthesia introduced. After official time out and no disagreement with planned procedure, a bite block positioned. Video gastroscope easily passed down the esophagus. There did not appear to be focal narrowing that warranted dilatation at this time as his dysphagia resolved. He did have some salmon pink mucosa extending up into the upper esophagus a couple centimeters. The scope was passed around to the third portion of the duodenum. Third, second and first portion of the duodenum with a little bit of flattening of the fold. Cold biopsy taken to evaluate for celiac disease in the small bowel. Good hemostasis noted. Back in the stomach he had some erythema and some borderline mild gastritis. Cold biopsy taken to evaluate for Helicobacter pylori. Good hemostasis noted. In the gastric body and fundus there is some smooth appearing gastric polyp. Cold biopsy taken of gastric polyp and gastric fundus to evaluate polyps for path. On retroflex there is no evidence of any large hiatal hernia. The scope is straightened. Gastroesophageal junction 40 cm. There was some evidence of some mild early distal esophagitis and a little bit of salmon pink mucosa extending up one fingerlette approximately a couple centimeters proximal. Multiple cold biopsies were taken to evaluate for Gleason's esophagus. Good hemostasis noted. The remainder of the esophagus grossly unremarkable. Again, no signs of any obvious narrowed area that warrants dilation at this point. The scope is withdrawn. The patient tolerated the procedure well.
== END 2022-05-27 12:30 | disposition home or self-care (01) ==
LOC: SDC 08:47
PROVIDERS: ATTEND Surgery
DX: K22.719 Barrett's esophagus with dysplasia, unspecified (principal); K29.70 Gastritis, unspecified, without bleeding; Z87.01 Personal history of pneumonia (recurrent); Z87.19 Personal history of other diseases of the digestive system; K31.7 Polyp of stomach and duodenum; K20.90 Esophagitis, unspecified without bleeding
CPT/HCPCS: 88305; 99100; J2704

== ENCOUNTER 2022-10-09 10:35 | Day surgery (SDC) | payer BC ==
[2022-10-09] MEDS ORDERED: Decadron 4 MG INJ IV ONE (10:36)
[2022-10-09] MEDS ORDERED: XYLOCAINE 1% HCL 20 ML MDV IJ ONE (10:36)
[2022-10-09] MEDS ORDERED: DIPRIVAN 200 MG/20 ML IV ONE (12:51)
--- NOTE | 2022-10-09 14:52 | XRAY ---
Indication: Right piriformis injection. Intraoperative fluoroscopy provided for 15 seconds. 2 digital spot image submitted for interpretation demonstrates posterior needle tip projecting over the right piriformis. Small amount of contrast injected for needle tip placement. Correlate with intraoperative findings/report.
--- NOTE | 2022-10-09 14:59 | XRAY ---
15 seconds of fluoroscopy was used in surgery for a right piriformis injection.
[2022-10-09] MEDS ORDERED: Lactated Ringers 1,000 ML IV ONE (15:00)
== END 2022-10-09 13:19 | disposition home or self-care (01) ==
LOC: SDC-PAIN 10:35
PROVIDERS: ATTEND Psychiatry & Neurology Pain Medicine
DX: M79.18 Myalgia, other site (principal); Z79.899 Other long term (current) drug therapy
CPT/HCPCS: 20552; 72170; 77002; 99100; J1100; J2704; Q9966

== ENCOUNTER 2023-02-28 13:56 | Emergency (ER) | payer BC ==
[2023-02-28 14:55] VITALS: RESP 17; TEMP 97.7
[2023-02-28] MEDS ORDERED: ARZOL Silver Nitrate Applicator TP ONE ×2 (15:15)
[2023-02-28] MEDS ORDERED: BACIGUENT PACKET ONE (15:16)
--- NOTE | 2023-02-28 15:27 | ERPHSYRPT ---
- History of Present Illness Time Seen by Provider: 02/28/23 15:00 Source: patient Exam Limitations: no limitations Patient Subjective Stated Complaint: Patient states he picked off a scab or small skin area to from his left hand yesterday but he can't get it to quit bleeding. Patient states he went to Dr. Yousif's office and Dr. Yousif sent him to the ER. Triage Nursing Assessment: Patient ambulated back to ER. A 2X2 gauze saturated in bright red blood was taped with scotch tape to the back to patient's hand near ring and middle finger. Dressing removed and area cleansed. A small skin tear or abrasion noted to back of left hand between ring and middle finger; area measures 0.2cm X 0.1cm. No active bleeding noted once area cleansed. Patient states he takes eliquis and plavix. Physician History: This is a right-handed 77-year-old white male patient on both Plavix and Eliquis for medical condition and noticed a eschar on the dorsal aspect of his left hand at the third knuckle. He has a tendency to pick at scabs and he did this 2 days ago. Ever since that event, this very small site has been oozing blood slowly. He has tried pressure. He has tried bandages. Patient sought medical care at his primary care physician's office who sent him to the emergency department. Timing/Duration: day(s) (2) Severity: mild Location: hands (Dorsal aspect left hand) Associated Symptoms: denies symptoms Allergies/Adverse Reactions: No Known Drug Allergies Allergy (Verified 02/28/23 14:44) Home Medications: Omeprazole 20 mg PO BID 01/16/21 [History] Simvastatin 20Mg [Zocor 20Mg] 20 mg PO QHS 01/16/21 [History] Timolol Maleate 0.5% Eye [Timoptic 0.5% 5 ml Ophthalmic] 1 drop OP BID 01/16/21 [History] cloNIDine HCL [Clonidine HCl] 0.3 mg PO BID 01/16/21 [History] Zolpidem Tartrate 10 mg [Ambien 10 MG] 10 mg PO HS PRN PRN 01/17/21 [History] Apixaban [Eliquis] 5 mg PO BID 04/29/22 [History] Benzonatate 200 mg PO TID 04/29/22 [History] Cetirizine HCl [Children's Zyrtec Allergy] 10 mg PO DAILY 04/29/22 [History] Clopidogrel Bisulfate [Clopidogrel] 1 tab PO DAILY 04/29/22 [History] Fexofenadine HCl 1 tab PO DAILY 04/29/22 [History] Fluticasone Propionate [Flonase NASAL] 1 spray IH DAILY PRN PRN 04/29/22 [History] Losartan Potassium 100 mg PO DAILY 04/29/22 [History] Metoprolol Tartrate 25 mg [Lopressor 25MG Tab] 25 mg PO HS 04/29/22 [History] Metoprolol Tartrate 50 mg [Lopressor 50 MG] 100 mg PO BID 04/29/22 [Histor y] Potassium Chloride Tab* [Klor Con] 20 meq PO DAILY 04/29/22 [History] Sildenafil Citrate 20 mg PO DAILY PRN PRN 04/29/22 [History] Furosemide 20 mg [Lasix 20 mg] 20 mg PO DAILY 05/27/22 [History] Hx Tetanus, Diphtheria Vaccination/Date Given: Yes Hx Influenza Vaccination/Date Given: No Hx Pneumococcal Vaccination/Date Given: No Immunizations Up to Date: Yes Travel Risk - International Travel Have you traveled outside of the country in past 3 weeks: No - Coronavirus Screening Are you exhibiting any of the following symptoms?: No - Vaccine Status Have you recieved a Covid-19 vaccination: Yes [employer]: [employer] - Vaccination Dates Dates if Unknown: 07/18/2020 - Review of Systems Constitutional: No Symptoms Eyes: No Symptoms Ears, Nose, & Throat: No Symptoms Respiratory: No Symptoms Cardiac: No Symptoms Abdominal/Gastrointestinal: No Symptoms Genitourinary Symptoms: No Symptoms Musculoskeletal: No Symptoms Skin: Other (Persistent skin bleed dorsal aspect left hand) Neurological: No Symptoms Psychological: No Symptoms Endocrine: No Symptoms Hematologic/Lymphatic: No Symptoms Immunological/Allergic: No Symptoms All Other Systems: Reviewed and Negative - Past Medical History Pertinent Past Medical History: Yes Neurological History: No Pertinent History ENT History: Glaucoma Cardiac History: Coronary Artery Disease, High Cholesterol, Hypertension, Other Respiratory History: COPD Endocrine Medical History: No Pertinent History Musculoskeletal History: Other GI Medical History: GERD History: No Pertinent History Psycho-Social History: Anxiety, Depression Male Reproductive Disorders: No Pertinent History Other Medical History: 2 CARDIAC STINTS. - Past Surgical History Past Surgical History: Yes Neuro Surgical History: No Pertinent History Cardiac: Cardiac Catheterization, Cardiac Stent Respiratory: No Pertinent History Gastrointestinal: No Pertinent History Genitourinary: No Pertinent History Musculoskeletal: No Pertinent History Male Surgical History: No Pertinent History Other Surgical History: EGD. Colonoscopy - Social History Smoking Status: Never smoker Exposure to second hand smoke: No Drug Use: none Patient Lives Alone: Yes - Nursing Vital Signs Nursing Vital Signs: Initial Vital Signs Temperature 97.7 F 02/28/23 14:46 Pulse Rate 81 02/28/23 14:46 Respiratory Rate 17 02/28/23 14:46 Blood Pressure 169/97 02/28/23 14:46 O2 Sat by Pulse Oximetry 97 02/28/23 14:46 Pain Scale Pain Intensity 0 - Physical Exam General Appearance: no apparent distress, alert Eye Exam: PERRL/EOMI Ears, Nose, Throat Exam: normal ENT inspection, moist mucous membranes Neck Exam: normal inspection, non-tender, supple, full range of motion Respiratory Exam: airway intact, No chest tenderness, No respiratory distress Gastrointestinal/Abdomen Exam: No tenderness Rectal Exam: not done Back Exam: normal inspection, normal range of motion, No CVA tenderness Extremity Exam: normal range of motion, pelvis stable Neurologic Exam: alert, oriented x 3, cooperative, setter up II-XII nml as tested, normal mood/affect, nml cerebellar function, nml station & gait, sensation nml Skin Exam: other (Distant bleeding from a 2 to 3 mm lesion/abrasion dorsal aspect left hand) Lymphatic Exam: No adenopathy SpO2 Interpretation: normal SpO2: 97 O2 Delivery: Room Air Procedures - Additional Procedures Progress: Other: Timeout performed at 3:15 PM. The area was cleaned previously with Hibiclens. It was then dried with 4 x 4 gauze. Silver nitrate stick was used to cauterize the small bleeding site. Thin layer of bacitracin ointment applied followed by a layer of Surgicel gauze, followed by nonstick pad and pressure dressing. There were no complications and the patient taught the procedure well. - Course Nursing assessment & vital signs reviewed: Yes Ordered Tests: Medication Summary Discontinued Medications Generic Name Dose Route Start Last Admin Trade Name Phil PRN Reason Stop Dose Admin Bacitracin Zinc Confirm 02/28/23 15:16 Bacitracin Packet 1 Each Pckt Administered 02/28/23 15:17 Dose 2 each .ROUTE .STK-MED ONE Silver Nitrate Confirm 02/28/23 15:15 Silver Nitrate 1 Pkt Each Administered 02/28/23 15:16 Dose 1 pkt TP .STK-MED ONE - Progress Progress: improved Progress Note: 02/28/23 15:27 This patient's medical issue is 1 of low complexity. The level of complexity in the workup performed is based on review of the patient's past medical history, review of the patient's medication list, review patient drug allergy list, history present illness and physical findings on examination. No radiographic or laboratory studies necessary in this patient. Medical Desision Making - Diagnostic Testing Diagnostic test were ordered, analyzed, and reviewed by me: No - Risk of complications Minimal Risk: Minimal risk of morbidity - Departure Departure Disposition: Home Clinical Impression: Visit for wound check, Visit for wound care, Bleeding from wound Condition: Stable Critical Care Time: No Referrals: LEATHA YOUSIF MD [Primary Care Provider] - Follow up/PCP as directed Additional Instructions: Stop your Plavix and Eliquis and restart in the afternoon on 03/02/2023. Keep the pressure dressing in place till the morning of 03/02/2023. At that time remove the dressing. Do not rub the site. May wash daily thereafter with soap and water. Only dry the site by blot drying or using a chairman and ceo. Do not rub the wound.
[2023-02-28 15:43] VITALS: BP 160/90; PULSE 76; O2SAT 98
[2023-03-01] MEDS ORDERED: BACIGUENT 30 GM TP SCH (15:15)
== END 2023-02-28 15:44 | disposition home or self-care (01) ==
LOC: ED 13:56
DX: Z48.00 Encounter for change or removal of nonsurgical wound dressing (principal); S60.512A Abrasion of left hand, initial encounter; E78.5 Hyperlipidemia, unspecified; I10 Essential (primary) hypertension; Z79.01 Long term (current) use of anticoagulants; Z79.02 Long term (current) use of antithrombotics/antiplatelets; Z79.899 Other long term (current) drug therapy
CPT/HCPCS: 99281; A9270-GY

== ENCOUNTER 2023-05-06 13:12 | Emergency (ER) | payer BC ==
[2023-05-06 13:36] VITALS: TEMP 98.4
[2023-05-06 14:07] LABS: Absolute Neutrophil Ct (ANC) 6.91 x10^3/uL (1.4-6.9); BASOPHIL % 0.2 % (0.0-0.4); Basophil (Absolute #) 0.02 x10^3/uL (0-0.4); Eosinophil % 0.6 % (0.00-5.0); Eosinophil (Absolute #) 0.05 x10^3/uL (0-0.5); Hematocrit 37.3 % (42-50); Hemoglobin 11.7 g/dL (12.5-18.0); IMMATURE GRAN # 0.04 x10^3u/L (0.00-0.03); IMMATURE GRAN % 0.5 % (0.00-0.4); Lymphocyte (Absolute #) 0.96 x10^3/uL (1.0-4.6); Lymphocytes % 11.2 % (24.0-44.0); Mean Cell Volume 93.7 fL (78-100); Mean Corpuscular Hemoglobin 29.4 pg (26-32); Mean Corpuscular Hgb Concent. 31.4 g/dL (32-36); Mean Platelet Volume 9.1 fL (7.5-11.0); Monocyte (Absolute #) 0.57 x10^3/uL (0.0-1.3); Monocytes % 6.7 % (0.0-12.0); Neutrophil % 80.8 % (36.0-66.0); Platelet Count 234 x10^3/uL (150-450); Red Blood Count 3.98 x10^6/uL (4.1-5.6); Red Cell Distribution Width 15.9 % (11.5-14.0); White Blood Count 8.6 x10^3/uL (4.0-10.5)
[2023-05-06 14:27] LABS: ALBUMIN 4.3 g/dL (3.5-5.0); ANION GAP 14.9 MEQ/L (5-15); BILIRUBIN,TOTAL 0.5 mg/dL (0.2-1.3); Calcium 9.6 mg/dL (8.4-10.2); Creatinine 1 2.53 mg/dL (0.66-1.25); EST GLOMERULAR FILTRATION RATE 25.8 ML/MIN; Total Protein 7.7 g/dL (6.3-8.2)
[2023-05-06 14:32] LABS: Potassium 6.4 mmol/L (3.5-5.1)
--- NOTE | 2023-05-06 14:45 | ERPHSYRPT ---
- History of Present Illness Time Seen by Provider: 05/06/23 13:25 Source: patient Exam Limitations: no limitations Patient Subjective Stated Complaint: doctor office called and said my potassium was high Triage Nursing Assessment: pt ambulated into the er; pt is axo x4; c/o abdnormal labs; pt denies pain; pt denies N/V/D; skin PDW; no respiratory distress present; hypertensive Physician History: Patient is a 77-year-old male presents to our ED as a referral from his primary care doctor for evaluation and treatment of hyperkalemia. Patient states that he was simply obtaining a routine lab draw. Patient's potassium was elevated. Patient asymptomatic. Patient denies a history of nephropathy. Patient voices no other complaints or concerns at this time. Portions of this note were created with voice recognition technology. There may be grammatical, spelling, punctuation or sound alike errors Timing/Duration: today Severity: moderate Modifying Factors: Improves With: nothing Associated Symptoms: denies symptoms Allergies/Adverse Reactions: No Known Drug Allergies Allergy (Verified 05/06/23 13:16) Home Medications: Omeprazole 40 mg PO DAILY 01/16/21 [History] Simvastatin 20Mg [Zocor 20Mg] 20 mg PO QHS 01/16/21 [History] Timolol Maleate 0.5% Eye [Timoptic 0.5% 5 ml Ophthalmic] 1 drop OP BID 01/16/21 [History] cloNIDine HCL [Clonidine HCl] 0.3 mg PO BID 01/16/21 [History] Zolpidem Tartrate 10 mg [Ambien 10 MG] 10 mg PO HS PRN PRN 01/17/21 [History] Apixaban [Eliquis] 5 mg PO BID 04/29/22 [History] Cetirizine HCl [Children's Zyrtec Allergy] 10 mg PO DAILY 04/29/22 [History] Clopidogrel Bisulfate [Clopidogrel] 1 tab PO DAILY 04/29/22 [History] Fluticasone Propionate [Flonase NASAL] 1 spray IH DAILY PRN PRN 04/29/22 [History] Losartan Potassium 100 mg PO DAILY 04/29/22 [History] Metoprolol Tartrate 50 mg [Lopressor 50 MG] 50 mg PO BID 04/29/22 [History] Potassium Chloride Tab* [Klor Con] 20 meq PO DAILY 04/29/22 [History] Sildenafil Citrate 20 mg PO DAILY PRN PRN 04/29/22 [History] Furosemide 20 mg [Lasix 20 mg] 20 mg PO DAILY 05/27/22 [History] Budesonide/Glycopyr/Formoterol [Breztri Aerosphere Inhaler] 2 puff IH BID 05/06/23 [History] Diltiazem HCl [Tiazac] 360 mg PO DAILY 05/06/23 [History] Ezetimibe 10 mg [Zetia 10 MG] 10 mg PO DAILY 05/06/23 [History] Furosemide 40 mg PO DAILY 05/06/23 [History] Gabapentin 100 mg PO TID 05/06/23 [History] Hydralazine HCl 50 mg PO BID 05/06/23 [History] Spironolactone [Aldactone] 50 mg PO DAILY 05/06/23 [History] Hx Tetanus, Diphtheria Vaccination/Date Given: No Hx Influenza Vaccination/Date Given: No Hx Pneumococcal Vaccination/Date Given: No Travel Risk - International Travel Have you traveled outside of the country in past 3 weeks: No - Coronavirus Screening Are you exhibiting any of the following symptoms?: No Close contact with a COVID-19 positive Pt in past 14-21 Days: No - Vaccine Status Have you recieved a 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[employer] - Vaccination Dates Dates if Unknown: 07/18/2020 - Review of Systems Constitutional: No Symptoms, No Fever, No Chills Eyes: No Symptoms Ears, Nose, & Throat: No Symptoms Respiratory: No Symptoms, No Cough, No Dyspnea Cardiac: No Symptoms, No Chest Pain, No Edema, No Syncope Abdominal/Gastrointestinal: No Symptoms, No Abdominal Pain, No Nausea, No Vomiting, No Diarrhea Genitourinary Symptoms: No Symptoms, No Dysuria Musculoskeletal: No Symptoms, No Back Pain, No Neck Pain Skin: No Symptoms, No Rash Neurological: No Symptoms, No Dizziness, No Focal Weakness, No Sensory Changes Psychological: No Symptoms Endocrine: No Symptoms Hematologic/Lymphatic: No Symptoms Immunological/Allergic: No Symptoms All Other Systems: Reviewed and Negative - Past Medical History Pertinent Past Medical History: Yes Neurological History: No Pertinent History ENT History: Glaucoma Cardiac History: Coronary Artery Disease, High Cholesterol, Hypertension, Other Respiratory History: COPD Endocrine Medical History: No Pertinent History Musculoskeletal History: Other GI Medical History: GERD History: No Pertinent History Psycho-Social History: Anxiety, Depression Male Reproductive Disorders: No Pertinent History Other Medical History: 2 CARDIAC STINTS. - Past Surgical History Past Surgical History: Yes Neuro Surgical History: No Pertinent History Cardiac: Cardiac Catheterization, Cardiac Stent Respiratory: No Pertinent History Gastrointestinal: No Pertinent History Genitourinary: No Pertinent History Musculoskeletal: No Pertinent History Male Surgical History: No Pertinent History Other Surgical History: EGD. Colonoscopy - Social History Smoking Status: Never smoker Exposure to second hand smoke: No Drug Use: none Patient Lives Alone: Yes - Nursing Vital Signs Nursing Vital Signs: Initial Vital Signs Temperature 98.4 F 05/06/23 13:16 Pulse Rate 72 05/06/23 13:16 Respiratory Rate 22 05/06/23 13:16 Blood Pressure 161/110 05/06/23 13:16 O2 Sat by Pulse Oximetry 95 05/06/23 13:16 Pain Scale Pain Intensity 0 - Physical Exam General Appearance: no apparent distress, alert Eye Exam: PERRL/EOMI, eyes nml inspection Ears, Nose, Throat Exam: normal ENT inspection, TMs normal, pharynx normal, moist mucous membranes Neck Exam: normal inspection, non-tender, supple, full range of motion Respiratory Exam: normal breath sounds, lungs clear, airway intact, No respiratory distress Cardiovascular Exam: regular rate/rhythm, normal heart sounds, normal peripheral pulses Gastrointestinal/Abdomen Exam: soft, normal bowel sounds, No tenderness, No mass Back Exam: normal inspection, normal range of motion, No CVA tenderness, No vertebral tenderness Extremity Exam: normal inspection, normal range of motion, pelvis stable Neurologic Exam: alert, oriented x 3, cooperative, normal mood/affect, nml cerebellar function, nml station & gait, sensation nml, No motor deficits Skin Exam: normal color, warm, dry, No rash Lymphatic Exam: No adenopathy SpO2 Interpretation: normal SpO2: 95 O2 Delivery: Room Air - Course Nursing assessment & vital signs reviewed: Yes EKG Interpreted by Me: RATE (70), A-fib, NORMAL AXIS, NORMAL INTERVALS Ordered Tests: Active Orders 24 hr Category Date Time Status Director [employer] STAT Care 05/06/23 13:47 Active EKG-ER Only STAT Care 05/06/23 13:47 Active IV Insertion STAT Care 05/06/23 13:47 Active Pulse Oximetry (ED) STAT Care 05/06/23 13:47 Active CBC W DIFF Stat Lab 05/06/23 13:50 Completed CMP Stat Lab 05/06/23 13:50 Completed Respiratory Therapy Assessment DAILY RT 05/06/23 15:01 Active Medication Summary Discontinued Medications Generic Name Dose Route Start Last Admin Trade Name Phil PRN Reason Stop Dose Admin Albuterol Sulfate 2.5 mg 05/06/23 14:42 05/06/23 14:53 Albuterol Sulfate 2.5 Mg/3 Ml Neb IH 05/06/23 14:43 2.5 mg STAT ONE Administration Albuterol Sulfate Confirm 05/06/23 14:48 Albuterol Sulfate 2.5 Mg/3 Ml Neb Administered 05/06/23 14:49 Dose 2.5 mg IH .STK-MED ONE Calcium Gluconate 1,000 mg 05/06/23 14:42 05/06/23 15:01 Calcium Gluconate 1000 Mg/10 Ml Vial IV 05/06/23 14:43 1,000 mg STAT ONE Administration Calcium Gluconate Confirm 05/06/23 14:54 Calcium Gluconate 1000 Mg/10 Ml Vial Administered 05/06/23 14:55 Dose 1,000 mg IV .STK-MED ONE Dextrose 50 ml 05/06/23 14:43 05/06/23 15:01 Dextrose 50%-Water 50 Ml Abboject IV 05/06/23 14:44 50 ml STAT ONE Administration Dextrose Confirm 05/06/23 14:55 Dextrose 50%-Water 50 Ml Abboject Administered 05/06/23 14:56 Dose 50 ml IV .STK-MED ONE Furosemide 20 mg 05/06/23 14:44 05/06/23 15:02 Furosemide 20 Mg/Vial IV 05/06/23 14:45 20 mg ONCE STA Administration Furosemide Confirm 05/06/23 14:55 Furosemide 20 Mg/Vial Administered 05/06/23 14:56 Dose 20 mg .ROUTE .STK-MED ONE Insulin Human Regular 4 unit 05/06/23 14:43 05/06/23 15:01 Insulin Regular, Human 1 Unit IV 05/06/23 14:44 4 unit STAT ONE Administration Insulin Human Regular Confirm 05/06/23 14:57 Insulin Regular, Human 1 Unit Administered 05/06/23 14:58 Dose 4 unit .ROUTE .[facility] ONE Lab/Rad Data: Laboratory Result Diagrams 05/06/23 13:50 05/06/23 13:50 Laboratory Results 05/06/23 05/06/23 Range/Units 13:50 13:50 WBC 8.6 (4.0-10.5) x10^3/uL RBC 3.98 L (4.1-5.6) x10^6/uL Hgb 11.7 L (12.5-18.0) g/dL Hct 37.3 L (42-50) % MCV 93.7 (78-100) fL MCH 29.4 (26-32) pg MCHC 31.4 L (32-36) g/dL RDW 15.9 H (11.5-14.0) % Plt Count 234 (150-450) x10^3/uL MPV 9.1 (7.5-11.0) fL Gran % 80.8 H (36.0-66.0) % Immature Gran % (Auto) 0.5 H (0.00-0.4) % Nucleat RBC Rel Count 0.0 (0.00-0.1) % Eos # (Auto) 0.05 (0-0.5) x10^3/uL Immature Gran # (Auto) 0.04 H (0.00-0.03) x10^3u/L Absolute Lymphs (auto) 0.96 L (1.0-4.6) x10^3/uL Absolute Monos (auto) 0.57 (0.0-1.3) x10^3/uL Absolute Nucleated RBC 0.00 (0.00-0.01) x10^3u/L Lymphocytes % 11.2 L (24.0-44.0) % Monocytes % 6.7 (0.0-12.0) % Eosinophils % 0.6 (0.00-5.0) % Basophils % 0.2 (0.0-0.4) % Absolute Granulocytes 6.91 H (1.4-6.9) x10^3/uL Basophils # 0.02 (0-0.4) x10^3/uL Sodium 137 (135-145) mmol/L Potassium 6.4 H* (3.5-5.1) mmol/L Chloride 106 (98-107) mmol/L Carbon Dioxide 22 (22-30) mmol/L Anion Gap 14.9 (5-15) MEQ/L BUN 57 H (9-20) mg/dL Creatinine 2.53 H (0.66-1.25) mg/dL Estimated GFR 25.8 ML/MIN Glucose 108 H (74-106) mg/dL Calcium 9.6 (8.4-10.2) mg/dL Total Bilirubin 0.50 (0.2-1.3) mg/dL AST 19 (17-59) U/L ALT 14 (0-50) U/L Alkaline Phosphatase 73 (38-126) U/L Serum Total Protein 7.7 (6.3-8.2) g/dL Albumin 4.3 (3.5-5.0) g/dL - Progress Progress: improved Progress Note: Patient is a 77-year-old male presents to our ED for evaluation and treatment of hyperkalemia. Patient asymptomatic. No pain. Physical exam nonremarkable. Laboratory workup reveals a potassium of 6.4. There is also acute renal injury observed. We initiated medical management to decrease potassium. However patient will require higher level of care. Patient will require a director instrumentation possible hemodialysis. Patient stable at this point. Vital stable. No signs of hyperkalemia on EKG. Patient agrees to transfer to [facility] for further evaluation and treatment. Patient accepted by Dr. Joseph [facility] at 1505. Patient accepted via auto accept. Patient voices no other complaints or concerns at this time. Transfer paperwork completed. White catheter placed for possible obstructive uropathy Portions of this note were created with voice recognition technology. There may be grammatical, spelling, punctuation or sound alike errors Complexity problem addressed is high, threat to bodily function Critical care time is 134 minutes. Immediate action indicated to prevent deterioration. Patient's potassium of 6.4 is life-threatening Complex of data reviewed and analyzed extensive. Test ordered test reviewed. Results analyzed and correlated clinically with history and physical examination. Management discussed with receiving hospital Risk of complication and or risk morbidity/mortality patient management is high. Patient requires hospitalization/transfer for higher level of care Vital stable. Time spent to discharge patient is approximately 20 minutes. Plan of care established for shared decision making. No social determinants of health present impede follow-up. Portions of this note were created with voice recognition technology. There may be grammatical, spelling, punctuation or sound alike error 05/06/23 15:28 Counseled pt/family regarding: lab results, diagnosis - Departure Departure Disposition: Transfer Clinical Impression: Acute renal injury, Hyperkalemia Condition: Stable Critical Care Time: Yes Critical Care Time(excluding separately billable procedures): Critical 105-134 mins Referrals: LEATHA YOUSIF MD [Primary Care Provider] - Follow up/PCP as directed
[2023-05-06] MEDS ORDERED: PROVENTIL 2.5 MG/3 ML NEB IH ONE (14:48)
[2023-05-06] MEDS: PROVENTIL 2.5 MG/3 ML NEB IH ONE (14:53)
[2023-05-06] MEDS ORDERED: Calcium Gluconate 10% 1000 MG IV ONE (14:54)
[2023-05-06] MEDS ORDERED: Lasix 20 MG/2 ML ONE (14:55)
[2023-05-06] MEDS ORDERED: D50W 50 ml Abboject IV ONE (14:55)
[2023-05-06] MEDS ORDERED: HUMULIN R ONE (14:57)
[2023-05-06] MEDS: D50W 50 ml Abboject IV ONE (15:01)
[2023-05-06] MEDS: HUMULIN R IV ONE (15:01)
[2023-05-06] MEDS: Calcium Gluconate 10% 1000 MG IV ONE (15:01)
[2023-05-06] MEDS: Lasix 20 MG/2 ML IV STA (15:02)
[2023-05-06 15:19] VITALS: PULSE 71; RESP 24
[2023-05-06 15:59] VITALS: BP 166/79; O2SAT 96
== END 2023-05-06 15:59 | disposition short-term general hospital (02) ==
LOC: ED 13:12
DX: E87.5 Hyperkalemia (principal); N17.9 Acute kidney failure, unspecified; I10 Essential (primary) hypertension; I25.10 Atherosclerotic heart disease of native coronary artery without angina pectoris; Z79.01 Long term (current) use of anticoagulants; Z79.899 Other long term (current) drug therapy; Z20.828 Contact with and (suspected) exposure to other viral communicable diseases
CPT/HCPCS: 36000; 36415; 51702; 80053; 85025; 93005; 93041; 94640; 94760; 96374; 99285; 99291; 99292; J0612; J1815; J1940; J7609; A9270-GY